=== PATIENT | male | born 1970 | race Caucasian/White ===

== ENCOUNTER 2016-02-18 12:28 | Emergency (ER) ==
[2016-02-18 12:40] VITALS: BP 138/85; TEMP 98.2; BMI 42.1
--- NOTE | 2016-02-18 12:41 | ED.PDOC ---
General ED Provider: Dr. KERRY BUTCHER-ER Chief Complaint: Respiratory Complaint Stated Complaint: my sinuses are draining and im coughing it up Time Seen by Physician: 12:35 Mode of Arrival: Walk-In Information Source: Patient Exam Limitations: No limitations Primary Care Provider: MARK ANTHONY MACIAS Nursing and Triage Documentation Reviewed and Agree: Yes Respiratory Complaint Exam - Respiratory Complaint/Exam Onset/Duration: 2 weeks Symptoms Are: Still present Timing: Intermittent Initial Severity: Mild Current Severity: Mild Location: Nose, Chest Character: Reports: Productive cough Aggravating: Reports: URI Associated Signs and Symptoms: Reports: URI, Nasal congestion, Sinus discomfort , Sore throat. Denies: Rapid breathing, Dyspnea, Fever, Chills, Chest pain, Pleuritic chest pain, Wheezing, Hemoptysis, Dizziness, Calf pain, Calf swelling , Edema, Hoarseness, Vomiting, Weight loss, Decreased oral intake, Increased thirst, Increased appetite, Increased urination Related History: Reports: Similar episode History of Healthcare-Acquired Pneumonia: No Related Surgical History: Reports: None Pseudomonas Risk Factors: Reports: None Tuberculosis Risk Factors: Reports: None Status Asthmaticus Risk Factors: Reports: None Home Oxygen Use: No Recent Stress Test: No Recent Echo/LV Function: No Current Antibiotic Use: No Current Asthma Medication Use: No Respiratory Distress: None Inadequate Respiratory Effort: No Dysphagia Present: No Stridor Present: No JVD Present: No Accessory Muscle Use: No Retractions: Not Present Diminished Breath Sounds: No Sinus Tenderness: None Grunting Respirations: No Kussmaul Respirations: No Differential Diagnoses: Bronchitis, URI Review of Systems - Review Of Systems Constitutional: Reports: No symptoms Eyes: Reports: No symptoms Ears, Nose, Mouth, Throat: Reports: Nose discharge Respiratory: Reports: Cough Cardiac: Reports: No symptoms GI: Reports: No symptoms : Reports: No symptoms Musculoskeletal: Reports: No symptoms Skin: Reports: No symptoms Neurological: Reports: No symptoms Endocrine: Reports: No symptoms Hematologic/Lymphatic: Reports: No symptoms All Other Systems: Reviewed and Negative Past Medical History - Past Medical History Endocrine: Reports: None Cardiovascular: Reports: None Respiratory: Reports: Asthma Hematological: Reports: None Gastrointestinal: Reports: None Genitourinary: Reports: None Neuro/Psych: Reports: None Musculoskeletal: Reports: None Cancer: Reports: None - Surgical History General Surgical History: Reports: Cholecystectomy, Unknown - Family History Family History: Reports: Unknown - Social History Smoking Status: Never smoker Hx Substance Use: No Alcohol Screening: None Lives: With family Physical Exam - Physical Exam Appearance: Well-appearing, No pain distress, Well-nourished Eyes: MARSHA, EOMI, Conjunctiva clear ENT: Rhinorrhea Neck: Supple Respiratory: Rhonchi Cardiovascular: RRR, Pulses normal, No rub, No murmur GI/: Soft, Nontender, No masses, Bowel sounds normal, No Organomegaly Musculoskeletal: Normal strength, ROM intact, No edema, No calf tenderness Skin: Warm, Dry, Normal color Neurological: Sensation intact, Motor intact, Reflexes intact, Cranial nerves intact, Alert, Oriented Psychiatric: Affect appropriate, Mood appropriate Critical Care Note - Critical Care Note Total Time (mins): 0 Course - Course Vital Signs: Temp Pulse Resp BP Pulse Ox 02/18/16 12:30 98.2 F 77 18 138/85 94 L Departure - Departure Time of Disposition: 12:41 Disposition: HOME SELF-CARE Discharge Problem: Bronchitis Sinusitis Qualifiers: Sinusitis location: unspecified location Chronicity: acute Recurrence: not specified as recurrent Qualifier Code: (J01.90) Acute sinusitis, unspecified Instructions: Acute Bronchitis (ED) Condition: Good Pt referred to PMD for follow-up: Yes Additional Instructions: biaxin 500mg bid x 14 days medrol dose pack--f/u with pcp Allergies/Adverse Reactions: Allergies aspirin Adverse Reaction (Verified 02/18/16 12:29) Home Medications: Ambulatory Orders Albuterol Sulfate 0.083% Neb [Albuterol 0.083% Neb] 1 vial NEB DIRECTED PRN 02/06/15 Cetirizine HCl [Zyrtec] 10 mg PO DAILY 02/06/15 Cyclobenzaprine HCl [Flexeril] 10 mg PO BID 02/06/15 Dicyclomine HCl [Bentyl] 10 mg PO QID 02/06/15 Lansoprazole [Prevacid] 15 mg PO DAILY 02/06/15 Losartan Potassium [Cozaar] 100 mg PO DAILY 02/06/15 Montelukast Sodium [Singulair] 10 mg PO ONCE 02/06/15 Pravastatin Sodium [Pravachol] 20 mg PO BEDTIME 02/06/15 Sertraline HCl [Zoloft] 50 mg PO DAILY 02/06/15 Multivitamin 1 cap PO DAILY 06/04/15 Disposition Discussed With: Patient
== END 2016-02-18 12:49 | disposition home or self-care (01) ==
LOC: ED 12:28
DX: J01.90 Acute sinusitis, unspecified (principal)
CPT/HCPCS: 99282

== ENCOUNTER 2016-03-15 10:00 | Outpatient (RCR) ==
--- NOTE | 2016-03-11 15:56 | RS.OPPTEV2 ---
Date of Note: 03/11/16 Visit #: 1 Date of Evaluation: 03/11/16 Date of Onset/Injury/Change in Status: 09/05/15 Surgery Performed?: No Treatment Diagnosis: back pain and LLE pain History of Condition/Mechanism of Injury:: Patient states that six months ago he had been having coughing and it was so bad he passed out. When he did he fell backward and hurt his back. The pain has been getting worse and he has been given pain meds and flexeril but has had some relief but it is temporary. Patient does report his left leg going numb when standing a great deal and he can trip at those times. He has not fallen other than when he passed out. Prior Level of Function.....Patient was independent with: ADL's, Self Care, Work /Vocation, Caregiving, Ambulation/Mobility, Community Integration/Access Functional Limitations: Sleep, Pulling, Lifting, Carrying, Sitting, Standing, Bending, Squatting, Ambulation, Community Access/Integration Treatment Side (optional): N/A *Precautions: 10# lifting restriction Medical History Medical History: Hypertension, Arthritis, Other Medical History Comments:: sleep apnea, anxiety, hgih cholesterol Surgical History: Cholecystectomy Surgical History Comments:: Rotator cuff repair and bicep tendon repair Pain Assessment - Pain Description Pain Description: Burning, Tightness, Sharp Pain Description: Punching type pain when at worst. Current Pain Intensity: 6-7/10 Worst Pain Intensity: 10/10 Functional Outcome Measure UE Functional Index: 44 - G Codes & Severity Modifier G Codes & Modifier: NA Source of G Code score: NA Observation - Observation Posture: Forward Head, Rounded Shoulders, Increased Thoracic Kyphosis, Increased Lumbar Lordosis General Muscle Strength: BLE MMT reveals 4 to 4+/5 strength with weakening over repetetive testing. - ROM Lumbar Flexion: Hand reach to patellae Sidebending to Left: Reach to Mid-thigh Sidebending to Right: Reach to Mid-thigh Lumbar Spine ROM Limitations: Pain Palpation Palpation Findings: Tenderness, Spasm (lower lumbar tenderness and tightness and lower thoracic area exhibits spasming.) Sensation - Sensation Left Lower Extremity: Impaired Sensation Description: Numbness (Intermittent left anterior thigh and foot.) Interventions - Exercise/Activities/Manual Therapy Exercises/Activities: NA Manual Therapy: NA - Charges Total Direct Minutes: 45 Total Treatment Time: 45 Procedures billed for this date of service:: PT Sil (Medium) Assessment Assessment: Thoracolumbar pain with LLE radicular pain. He has decreased lumbar ROM due to muscle tightness and pain and weakness of the core and BLEs. Patient Education: Education of diagnosis, Body/Joint mechanics, Activity Modification, Education of Plan of Care Rehab Potential: Good Short Term Goals Goal #1: Patient independent in basic HEP. Goal to be met by: 04/02/16 Goal #2: Lumbar ROM WFLs with min discomfort. Goal to be met by: 04/02/16 Goal #3: Eliminate radicular symptoms below the left knee. Goal to be met by: 04/02/16 Goal #4: Eliminate back spasming in the thoracic region. 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 Goal to be met by: 04/30/16 Goal #4: Independent with DC HEP Goal to be met by: 04/23/16 Plan - Treatment to be Provided Procedures: Therapeutic Exercises, Therapeutic Activity, Manual Therapy, Massage , Patient Education Modalities: Electrical Stimulation, Ultrasound/Phonophoresis, Cryotherapy, Hot Packs, Mechanical Traction - Treatment Plan Frequency: 3 X week Duration: 6 weeks ORDER # VISITS AND/OR THROUGH DATE: 04/30/2016 - Treatment Code (1) Lumbar radicular pain Comments: M54.16
--- NOTE | 2016-03-15 11:19 | RS.OPPTDN ---
Subjective Date of Note: 03/15/16 Visit #: 2 Date of Evaluation: 03/11/16 Treatment Diagnosis: back pain and LLE pain Current Subjective/complaints:: Patient c/o constant ache to the lower L lumbar paraspinals with tingling/numbness to the LE. Rates pain 7/10 today. States he has had back pain for many years same location and has had estim that relieved this pain. He mentions he does not want surgery, but will be seeing his neurosurgeon soon. *Precautions: 10# lifting restriction Pain Assessment - Pain Description Pain Location: L and R lumbar paraspinals and numbness/tingling bilateral LE, but more to the L. Pain Description: Burning, Tightness, Sharp Pain Description: Punching type pain when at worst. Current Pain Intensity: 7/10 - Treatment Modality: Electrical Stim Unattended Parameters/Method Applied: hivolt 4 large pads @ 165 pk volts uncrossed at the lumbar paraspinals Patient Position: Right Sidelying - Heat/Cryotherapy Treatment: Hot Pack Interventions - Exercise/Activities/Manual Therapy Exercises/Activities: Began passive stretching of SKTC, HS, Piriformis and lower trunk rotation (short range). Bilaterally x 3 reps. Provided Biofreeze. Began patient education on diagnosis and explanation of therex performed and why. Total minutes of Exercise: 12 Manual Therapy: NA - Charges Total Direct Minutes: 12 Total Treatment Time: 32 Procedures billed for this date of service:: hp, estim (un), ex Assessment: Patient presents with 7/10 pain level to the lumbar region with radicular symptoms to bilateral LE's. This more evident to the L LE. He has disturbed sleep, but also has sleep apnea. He takes pain meds and muscle relaxer to relieve his c/o's. He has a guarded posture and ambulation and remains so during stretching as he is not able to allow SKTC past 85 degrees hip flexion on the L. Grimacing noted with all stretching both sides. He should be able to see benefit from treatment with further modalities and stretching. Patient Education: Education of diagnosis, Body/Joint mechanics, Home Exercise Program, Home Safety, Activity Modification, Education of Plan of Care Short Term Goals Goal #1: Patient independent in basic HEP. Goal to be met by: 04/02/16 Goal #2: Lumbar ROM WFLs with min discomfort. Goal to be met by: 04/02/16 Goal #3: Eliminate radicular symptoms below the left knee. Goal to be met by: 04/02/16 Goal #4: Eliminate back spasming in the thoracic region. Goal to be met by: 04/02/16 Assisted Goals Goal #1: BLE strength 5/5 Goal to be met by: 04/23/16 Goal #2: Pain at worst /10 Goal to be met by: 04/23/16 Goal #3: Performs his job with minimal discomfort. Goal to be met by: 04/30/16 Goal #4: Independent with DC HEP Goal to be met by: 04/23/16 Plan PLAN OF CARE EXPIRES ON:: 04/30/16 ORDER # VISITS AND/OR THROUGH DATE: 04/30/2016 PLAN: Continue Plan of Care
== END 2016-03-16 ==
PROVIDERS: ATTEND Nurse Practitioner
DX: M54.89 Other dorsalgia (principal)

== ENCOUNTER 2016-03-18 09:52 | Outpatient (CLI) ==
[2016-03-18 11:43] VITALS: BMI 41.9
== END 2016-03-18 09:53 | disposition home or self-care (01) ==
LOC: DIETCN 09:52
PROVIDERS: ATTEND Nurse Practitioner
DX: Z68.41 Body mass index [BMI] 40.0-44.9, adult (principal)
CPT/HCPCS: 97802

== ENCOUNTER 2016-03-28 10:03 | Emergency (ER) ==
[2016-03-28 10:09] VITALS: BP 154/99; TEMP 98; BMI 42.0
--- NOTE | 2016-03-28 10:14 | ED.PDOC ---
General ED Provider: Dr. ZEUS NEGRON JR Chief Complaint: Cough Stated Complaint: INCREASINGLY WORSENING PRODUCTIVE COUGH, NASAL SYMPTOMS. TREATED ABOUT 3 WEEKS AGO FOR SIMILAR ISSUE...WAS BETTER AND NOW BACK. HX A YEAR OR SO AGO OF PNEUMONIA. SAYS CHEST FEELS TIGHT ON RIGHT LATERAL SIDE INCREASE COUGH[End]98 89 20 97% 154/99 04/23. Time Seen by Physician: 10:14 Mode of Arrival: Walk-In Information Source: Patient Exam Limitations: No limitations Primary Care Provider: MARK ANTHONY MACIAS Nursing and Triage Documentation Reviewed and Agree: No Review of Systems - Review Of Systems Constitutional: Reports: Malaise, Weakness Eyes: Reports: No symptoms Ears, Nose, Mouth, Throat: Reports: Throat pain Respiratory: Reports: Cough, Short of air Cardiac: Reports: Chest pain (RIGHT SIDED) GI: Reports: No symptoms : Reports: No symptoms Musculoskeletal: Reports: No symptoms Skin: Reports: No symptoms Neurological: Reports: No symptoms Endocrine: Reports: No symptoms Hematologic/Lymphatic: Reports: No symptoms All Other Systems: Other Past Medical History - Past Medical History Endocrine: Reports: Dyslipidemia Cardiovascular: Reports: Hypertension Respiratory: Reports: Asthma, Pneumonia, Other (Upper Respiratory Problem) Hematological: Reports: None Gastrointestinal: Reports: GERD, Other (hiatal hernia ) Genitourinary: Reports: None Neuro/Psych: Reports: None Musculoskeletal: Reports: None Cancer: Reports: None - Surgical History General Surgical History: Reports: Cholecystectomy, Orthopedic (RIGHT HAND SURGERY, ROTATOR CUFF.), Hernia Repair (LEFT HERNIA), Other (SINUS SURGERY X2), Unknown - Family History Family History: Reports: Unknown - Social History Smoking Status: Never smoker Hx Substance Use: No Alcohol Screening: None - Immunizations Tetanus Shot up to Date: Yes Physical Exam - Physical Exam Appearance: Well-appearing, Obese Ill-appearing: Mild Pain Distress: Mild Eyes: MARSHA, EOMI, Conjunctiva clear ENT: Nose normal, Oropharynx normal, Erythema Neck: Supple Respiratory: Airway patent, Breath sounds equal, Breath sounds diminished Cardiovascular: RRR, Pulses normal, No rub, No murmur GI/: Soft, Nontender, No masses, Bowel sounds normal, No Organomegaly Musculoskeletal: Normal strength, ROM intact, No edema, No calf tenderness Skin: Warm, Dry, Normal color Neurological: Sensation intact, Motor intact, Reflexes intact, Cranial nerves intact, Alert, Oriented Psychiatric: Affect appropriate, Mood appropriate Interpretation - Radiology Interpretation Radiology Interpretation By: ED Physician Radiology Results: Negative (BRONCHIAL CUFFING PRESENT) Exam Interpreted: CXR Radiology Interpretation By: Radiologist Radiology Results: Negative Exam Interpreted: CXR Critical Care Note - Critical Care Note Total Time (mins): 0 Course - Course Orders, Labs, Meds: Lab Review 03/28/16 10:15 Influenza A (Rapid) Negative Influenza B (Rapid) Negative Orders Category Date Time Status NEBULIZER TREATMENT Stat CARDIO 03/28/16 10:33 Completed PEAK FLOW Routine CARDIO 03/28/16 10:33 Completed MOLECULAR GROUP A STREP Stat LAB 03/28/16 10:15 Results RAPID FLU A/B Stat LAB 03/28/16 10:15 Completed SPUTUM CULTURE Stat LAB 03/28/16 11:13 Received STREP SCREEN Stat LAB 03/28/16 10:15 Results Ipratropium/Albuterol Neb [Duoneb] MEDS 03/28/16 10:33 Discontinued 1 vial NEB ONCE STA Methylprednisolone Sod Succ/Pf [Solu-Medrol 125 mg] MEDS 03/28/16 10:33 Discontinued 125 mg IM ONCE STA CHEST, 2 VIEWS PA & LAT Stat RADS 03/28/16 10:12 Completed Medications Discontinued Medications Generic Name Dose Route Start Last Admin Trade Name Freq PRN Reason Stop Dose Admin Albuterol/Ipratropium 1 vial 03/28/16 10:33 03/28/16 10:49 Duoneb NEB 03/28/16 10:34 1 vial ONCE STA Administration Methylprednisolone Sodium Succinate 125 mg 03/28/16 10:33 03/28/16 10:57 Solu-Medrol 125 Mg IM 03/28/16 10:34 125 mg ONCE STA Administration Vital Signs: Temp Pulse Resp BP Pulse Ox 03/28/16 10:04 98 F 89 20 154/99 H 97 Departure - Departure Time of Disposition: 10:57 Disposition: HOME SELF-CARE Discharge Problem: Cough, Bronchitis Instructions: Acute Bronchitis (ED) Condition: Good Pt referred to PMD for follow-up: Yes Additional Instructions: CODEINE FOR COUGH MAY TRY DEXTROMETHORPHAN INSTEAD(DM COUGH MEDICATION) SOLUMEDROL GIVEN IN ER RECHECK PMD THIS WEEK Prescriptions: Guaifenesin/Codeine Phosphate [Robitussin AC Syrup] 10 ml PO Q6H PRN #240 ml PRN Reason: Cough Allergies/Adverse Reactions: Allergies aspirin Adverse Reaction (Verified 02/12/17 10:11) Home Medications: Ambulatory Orders Albuterol Sulfate 0.083% Neb [Albuterol 0.083% Neb] 1 vial NEB DIRECTED PRN 02/06/15 Cetirizine HCl [Zyrtec] 10 mg PO DAILY 02/06/15 Cyclobenzaprine HCl [Flexeril] 10 mg PO BID 02/06/15 Dicyclomine HCl [Bentyl] 10 mg PO QID 02/06/15 Lansoprazole [Prevacid] 15 mg PO DAILY 02/06/15 Losartan Potassium [Cozaar] 100 mg PO DAILY 02/06/15 Montelukast Sodium [Singulair] 10 mg PO ONCE 02/06/15 Pravastatin Sodium [Pravachol] 20 mg PO BEDTIME 02/06/15 Sertraline HCl [Zoloft] 50 mg PO DAILY 02/06/15 Multivitamin 1 cap PO DAILY 06/04/15 Guaifenesin/Codeine Phosphate [Robitussin AC Syrup] 10 ml PO Q6H PRN #240 ml 01/30
[2016-03-28] MEDS ORDERED: DUONEB NEB STA (10:33)
[2016-03-28] MEDS ORDERED: SOLU-MEDROL 125 MG IM STA (10:33)
--- NOTE | 2016-03-28 10:36 | DI ---
Examination: Two radiographic images of the chest. Comparison: 08/18/2015. Reason for study: Cough. FINDINGS: No pneumothorax, pleural effusion, or focal consolidation. The cardiac silhouette is not enlarged. Degenerative disease is noted in the thoracic spine with the exaggeration of the thoraci c kyphosis. Impression: No acute cardiopulmonary findings.
[2016-03-28 10:44] LABS: FLU INTERNAL QC INTERNAL QC VALID; RAPID FLU A NEGATIVE (NEGATIVE); RAPID FLU B NEGATIVE (NEGATIVE)
== END 2016-03-28 11:30 | disposition home or self-care (01) ==
LOC: ED 10:03
DX: J20.9 Acute bronchitis, unspecified (principal); R05 Cough
CPT/HCPCS: 87070; 87651; 87804; 87880; 94250; 94640; 96372; 99282; 99283

== ENCOUNTER 2016-04-07 11:00 | Outpatient (RCR) ==
--- NOTE | 2016-03-19 11:12 | RS.OPPTDN ---
Subjective Date of Note: 03/19/16 Visit #: 3 Date of Evaluation: 03/11/16 Treatment Diagnosis: back pain and LLE pain Current Subjective/complaints:: Reports most of hispain is in the L low back and L LE today,but some R sided pain. *Precautions: 10# lifting restriction Pain Assessment - Pain Description Pain Location: L and R lumbar paraspinals and numbness/tingling bilateral LE, but more to the L. Pain Description: Radiating, Aching Current Pain Intensity: 7/10 - Treatment Modality: Electrical Stim Unattended Parameters/Method Applied: 20 mins. high volt to lumbar,channel 1 @165pv, channel 2 @ 135 pv. Patient Position: Right Sidelying - Heat/Cryotherapy Treatment: Hot Pack (concurrent with e-stim) Interventions - Exercise/Activities/Manual Therapy Exercises/Activities: 20 mins. SKTC,DKTC,90/90 hamstring stretches,piriformis stretches,SI muscle energy of resisted knee extension in hooklying position. Total minutes of Exercise: 20 Manual Therapy: NA Total minutes of Manual Therapy: 0 HOME EXERCISE PROGRAM: SKTC,DKTC,piriformis stretches,hamstring stretches as tolerated in PAIN FREE ROM. - Charges Total Direct Minutes: 20 Total Treatment Time: hp,e-stim,ex Procedures billed for this date of service:: 40 Assessment: Patient is guarded with all motion due to pain,He does respond well to stretches as the reps. progress.TheL lumbarand L piriformis are tighter than the R side.He is attentive and motivated to improve. Patient Education: Body/Joint mechanics, Home Exercise Program, Home Safety, Activity Modification, Education of Plan of Care Patient demonstrates compliance with HEP?: Yes Short Term Goals Goal #1: Patient independent in basic HEP. Goal to be met by: 04/02/16 Progress towards Goal:: Progressing Goal #2: Lumbar ROM WFLs with min discomfort. Goal to be met by: 04/02/16 Goal #3: Eliminate radicular symptoms below the left knee. Goal to be met by: 04/02/16 Goal #4: Eliminate back spasming in the thoracic region. Goal to be met by: 04/02/16 Longterm Goals Goal #1: BLE strength 5/5 Goal to be met by: 04/23/16 Goal #2: Pain at worst 4/10 Goal to be met by: 04/23/16 Goal #3: Performs his job with minimal discomfort. Goal to be met by: 04/30/16 Goal #4: Independent with DC HEP Goal to be met by: 04/23/16 Plan PLAN OF CARE EXPIRES ON:: 04/30/16 ORDER # VISITS AND/OR THROUGH DATE: 04/30/2016 PLAN: Continue Plan of Care
--- NOTE | 2016-03-22 10:17 | RS.CXNS ---
Date of scheduled appointment: 03/22/16 Type: Cancel Reason for Cancel/NS: Called in to work.
--- NOTE | 2016-03-26 12:50 | RS.OPPTDN ---
Subjective Date of Note: 03/26/16 Visit #: 4 Date of Evaluation: 03/11/16 Treatment Diagnosis: back pain and LLE pain Current Subjective/complaints:: Reports the back is about the same today,also tripped and feel over a pallet at work,adding to his soreness. *Precautions: 10# lifting restriction Pain Assessment - Pain Description Pain Location: L and R lumbar paraspinals and numbness/tingling bilateral LE, but more to the L. Pain Description: Radiating, Aching Pain Description: radiating into the L LE today. Current Pain Intensity: 08/23 - Treatment Modality: Electrical Stim Unattended Parameters/Method Applied: 20 ins. hiugh volt to lumbar,channel 1 @ 160pv, channel 2 @ 135 pv. Patient Position: Right Sidelying - Heat/Cryotherapy Treatment: Hot Pack (concurrent with e-stim) Interventions - Exercise/Activities/Manual Therapy Exercises/Activities: 20 mins. SKTC,DKTC,90/90 hamstring stretches,piriformis stretches,lower trunk rotation in hooklying. Total minutes of Exercise: 20 Manual Therapy: NA Total minutes of Manual Therapy: 0 HOME EXERCISE PROGRAM: SKTC,DKTC,piriformis stretches,hamstring stretches as tolerated in PAIN FREE ROM. - Charges Total Direct Minutes: 20 Total Treatment Time: 40 Procedures billed for this date of service:: hp,e-stim,ex 1 Assessment: Patient more guarded today ,especially with L piriformis stretch and trunk rotation to the R ,with report of increased pain in the L lumbar.He is attentive and motivated to improve .He does ahve moderate hamstring tightness ,but responds to stretches well. Patient Education: Body/Joint mechanics, Home Exercise Program, Home Safety, Activity Modification, Education of Plan of Care Patient demonstrates compliance with HEP?: Yes Short Term Goals Goal #1: Patient independent in basic HEP. Goal to be met by: 04/02/16 Progress towards Goal:: Progressing Goal #2: Lumbar ROM WFLs with min discomfort. Goal to be met by: 04/02/16 Progress towards Goal:: Progressing Goal #3: Eliminate radicular symptoms below the left knee. Goal to be met by: 04/02/16 (entire L LE today) Progress towards Goal:: No Change Goal #4: Eliminate back spasming in the thoracic region. Goal to be met by: 04/02/16 Progress towards Goal:: Progressing Halfway Goals Goal #1: BLE strength 06/18 Goal to be met by: 04/23/16 Goal #2: Pain at worst 05/24 Goal to be met by: 04/23/16 Progress towards goal: No Change Goal #3: Performs his job with minimal discomfort. Goal to be met by: 04/30/16 Goal #4: Independent with DC HEP Goal to be met by: 04/23/16 Plan PLAN OF CARE EXPIRES ON:: 04/30/16 ORDER # VISITS AND/OR THROUGH DATE: 04/30/2016 PLAN: Progress Exercises
--- NOTE | 2016-03-29 09:07 | RS.CXNS ---
Date of scheduled appointment: 03/29/16 Type: Cancel (called ,is sick)
--- NOTE | 2016-04-02 11:02 | RS.OPPTDN ---
Subjective Date of Note: 04/02/16 Visit #: 5 Date of Evaluation: 03/11/16 Treatment Diagnosis: back pain and LLE pain Current Subjective/complaints:: Reports the back feels about the same,is doing his stretches.We discusd progresing to leg strengthening today,is agreeable . *Precautions: 10# lifting restriction Pain Assessment - Pain Description Pain Location: L and R lumbar paraspinals and numbness/tingling bilateral LE, but more to the L. Pain Description: Radiating, Aching Pain Description: radiating into the L LE today. Current Pain Intensity: 08/23 - Treatment Modality: Electrical Stim Unattended Parameters/Method Applied: 20 mins. high volt,channel 1 @ 200pv,channel 2@ 140 pv. Patient Position: Right Sidelying - Heat/Cryotherapy Treatment: Hot Pack (concurrent with e-stim) Interventions - Exercise/Activities/Manual Therapy Exercises/Activities: 20 mins. ,2/15 each of seated leg press @ 30# ,1 set @ 45 #,followed by calf-raises,3/15 @ 30 #. Total minutes of Exercise: 20 Manual Therapy: NA Total minutes of Manual Therapy: 0 HOME EXERCISE PROGRAM: SKTC,DKTC,piriformis stretches,hamstring stretches as tolerated in PAIN FREE ROM. - Charges Total Direct Minutes: 20 Total Treatment Time: 40 Procedures billed for this date of service:: hp,e-stim,ex1 Assessment: Patient reports feeling increased pressure in his back with resistive exercises ,but no pain .He is compliant to HEP.He is aware of 10# lifting restricition at work and is cautious.His L sciatica is the entire length of the L LE today,into the foot. Patient Education: Education of diagnosis, Body/Joint mechanics, Home Exercise Program, Home Safety, Activity Modification, Education of Plan of Care Patient demonstrates compliance with HEP?: Yes Short Term Goals Goal #1: Patient independent in basic HEP. Goal to be met by: 04/02/16 Progress towards Goal:: Partially Met Goal #2: Lumbar ROM WFLs with min discomfort. Goal to be met by: 04/02/16 Progress towards Goal:: Progressing Goal #3: Eliminate radicular symptoms below the left knee. Goal to be met by: 04/02/16 (entire L LE today) Progress towards Goal:: No Change Goal #4: Eliminate back spasming in the thoracic region. 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 Goal to be met by: 04/30/16 Goal #4: Independent with DC HEP Goal to be met by: 04/23/16 Progress towards goal: Progressing Plan PLAN OF CARE EXPIRES ON:: 04/30/16 ORDER # VISITS AND/OR THROUGH DATE: 04/30/2016 PLAN: Continue Plan of Care
--- NOTE | 2016-04-07 12:00 | RS.OPPTDN ---
Subjective Date of Note: 04/07/16 Visit #: 6 Date of Evaluation: 03/11/16 Treatment Diagnosis: back pain and LLE pain Current Subjective/complaints:: Reports the back is about the same today,still occasionally has pain radiating into the L LE. *Precautions: 10# lifting restriction Pain Assessment - Pain Description Pain Location: L and R lumbar paraspinals and numbness/tingling occasionally into the L LE. Pain Description: Radiating, Aching Pain Description: radiating into the L LE today. Current Pain Intensity: 08/23 - Treatment Modality: Electrical Stim Unattended Parameters/Method Applied: 20 mins. high volt to lumbar/L gluteal area,channel 1 @230pv,channel2 @ 165pv. Patient Position: Right Sidelying - Heat/Cryotherapy Treatment: Hot Pack (concurrent with e-stim) Interventions - Exercise/Activities/Manual Therapy Exercises/Activities: Attempted black theraband exercises ,but patient reports painful R shoulder.Instructed in standing alternate UE/LE extension. Total minutes of Exercise: 5 Manual Therapy: NA Total minutes of Manual Therapy: 0 HOME EXERCISE PROGRAM: SKTC,DKTC,piriformis stretches,hamstring stretches as tolerated in PAIN FREE ROM. - Charges Total Direct Minutes: 5 Total Treatment Time: 25 Procedures billed for this date of service:: hp,e-stim Patient Education: Education of Plan of Care Short Term Goals Goal #1: Patient independent in basic HEP. Goal to be met by: 04/02/16 Progress towards Goal:: Partially Met Goal #2: Lumbar ROM WFLs with min discomfort. Goal to be met by: 04/02/16 (7 pain again today) Progress towards Goal:: No Change Goal #3: Eliminate radicular symptoms below the left knee. Goal to be met by: 04/02/16 Progress towards Goal:: Progressing Goal #4: Eliminate back spasming in the thoracic region. 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 Goal to be met by: 04/30/16 (pain varies) Goal #4: Independent with DC HEP Goal to be met by: 04/23/16 Progress towards goal: Progressing Plan PLAN OF CARE EXPIRES ON:: 04/30/16 ORDER # VISITS AND/OR THROUGH DATE: 04/30/2016 PLAN: Continue Plan of Care
== END 2016-04-13 ==
PROVIDERS: ATTEND Nurse Practitioner
DX: M54.89 Other dorsalgia (principal)

== ENCOUNTER 2016-04-14 11:16 | Outpatient (RCR) ==
--- NOTE | 2016-04-14 12:02 | RS.OPPTDN ---
Subjective Date of Note: 04/14/16 Visit #: 7 Date of Evaluation: 03/11/16 Treatment Diagnosis: back pain and LLE pain Current Subjective/complaints:: Reports walking more at work the last few days, has elevated pain today. *Precautions: 10# lifting restriction Pain Assessment - Pain Description Pain Location: L and R lumbar paraspinals and numbness/tingling occasionally into the L LE. Pain Description: radiating into the L LE today. Current Pain Intensity: 10/24 - Treatment Modality: Electrical Stim Unattended Parameters/Method Applied: 20 mins. high volt,channel 1 @ 200pv,channel 2 @ 125pv to lumbar and L hip. Patient Position: Right Sidelying - Heat/Cryotherapy Treatment: Hot Pack (concurrent with e-stim ) Interventions - Exercise/Activities/Manual Therapy Exercises/Activities: 20 mins. SKTC, hamstring stretches,piriformis stretches, LTR. Total minutes of Exercise: 20 Manual Therapy: NA Total minutes of Manual Therapy: 0 HOME EXERCISE PROGRAM: SKTC,DKTC,piriformis stretches,hamstring stretches as tolerated in PAIN FREE ROM. - Charges Total Direct Minutes: 20 Total Treatment Time: 40 Procedures billed for this date of service:: hp,e-stim,ex 1 Assessment: Patient is more guarded today with stretches ,especially with L piriformis stretches,as his pain is elevated today.He reports temporary relief only,and the pain continues to be dependent upon the amount of standing time, such as at work. Patient Education: Body/Joint mechanics, Home Exercise Program, Activity Modification Patient demonstrates compliance with HEP?: Yes Short Term Goals Goal #1: Patient independent in basic HEP. Goal to be met by: 04/02/16 Progress towards Goal:: Met Goal #2: Lumbar ROM WFLs with min discomfort. Goal to be met by: 04/02/16 (10/24 today) Progress towards Goal:: Regressing Goal #3: Eliminate radicular symptoms below the left knee. Goal to be met by: 04/02/16 Progress towards Goal:: No Change Goal #4: Eliminate back spasming in the thoracic region. 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 Goal to be met by: 04/30/16 (pain varies) Progress towards goal: No Change Goal #4: Independent with DC HEP Goal to be met by: 04/23/16 Progress towards goal: Progressing Plan PLAN OF CARE EXPIRES ON:: 04/30/16 ORDER # VISITS AND/OR THROUGH DATE: 04/30/2016 PLAN: Plan for Discharge
--- NOTE | 2016-04-21 11:47 | RS.CXNS ---
Date of scheduled appointment: 04/21/16 Type: No Show Reason for Cancel/NS: Unknown
--- NOTE | 2016-05-04 15:57 | RS.QUICKDC ---
Discharge from PT Date of Discharge: 05/04/16 Number of Visits: 7 Reason for Discharge: No appts. kept after 04-14-16.
== END 2016-05-14 ==
PROVIDERS: ATTEND Nurse Practitioner
DX: M54.89 Other dorsalgia (principal)

== ENCOUNTER 2016-09-23 07:08 | Emergency (ER) ==
[2016-09-23 07:14] VITALS: BP 147/92; TEMP 98.1; BMI 41.1
[2016-09-23] MEDS ORDERED: DECADRON 4 MG/ML SDV IM STA (07:23)
[2016-09-23] MEDS ORDERED: DUONEB NEB STA (07:24)
[2016-09-23 07:58] LABS: MONO INTERNAL QC INTERNAL QC VALID
--- NOTE | 2016-09-23 08:20 | ED.PDOC ---
General ED Provider: Dr. IHRAL TALAVERA Chief Complaint: Sore Throat Stated Complaint: sore throat Time Seen by Physician: 07:10 (cough , congestion, ) Mode of Arrival: Walk-In Information Source: Patient Exam Limitations: No limitations Primary Care Provider: MARK ANTHONY MACIAS Nursing and Triage Documentation Reviewed and Agree: Yes EENT Complaint Exam - Throat Complaint/Exam Symptoms Are: Resolved Initial Severity: Moderate Current Severity: Mild Alleviating: Reports: None Associated Signs and Symptoms: Reports: Cough. Denies: Fever, Dysphagia, Drooling, Foreign body sensation, Chills, Wheezing, Hoarseness, Sinus discomfort , Nasal congestion, Difficulty breathing, Lethargy, Irritability, Decreased activity, Vomiting, Diarrhea, Decreased hearing, Ear drainage Related History: Reports: Similar Episode Uvula Midline: Yes Cordelia-tonsillar Fluctuence: No Scarlatinaform Rash Present: No Stridor Present: No Sinus Tenderness Present: No Tonsillar Hypertrophy Present: No Tonsillar Exudate Present: No Cordelia-tonsillar Swelling Present: No Adenopathy Present: No Splenomegaly Present: No Review of Systems - Review Of Systems Constitutional: Reports: No symptoms Eyes: Reports: No symptoms Ears, Nose, Mouth, Throat: Reports: Throat pain Respiratory: Reports: Cough Cardiac: Reports: No symptoms GI: Reports: No symptoms : Reports: No symptoms Musculoskeletal: Reports: No symptoms Skin: Reports: No symptoms Neurological: Reports: No symptoms Endocrine: Reports: No symptoms Hematologic/Lymphatic: Reports: No symptoms All Other Systems: Reviewed and Negative Past Medical History - Past Medical History Endocrine: Reports: Dyslipidemia Cardiovascular: Reports: Hypertension Respiratory: Reports: Asthma, Pneumonia, Other Hematological: Reports: None Gastrointestinal: Reports: GERD, Other Genitourinary: Reports: None Neuro/Psych: Reports: None Musculoskeletal: Reports: None Cancer: Reports: None - Surgical History General Surgical History: Reports: Cholecystectomy, Orthopedic, Hernia Repair, Other, Unknown - Family History Family History: Reports: Unknown - Social History Smoking Status: Never smoker Hx Substance Use: No Alcohol Screening: None Physical Exam - Physical Exam Appearance: Well-appearing, No pain distress, Well-nourished Eyes: MARSHA, EOMI, Conjunctiva clear ENT: Erythema Respiratory: Airway patent, Breath sounds clear, Breath sounds equal, Respirations nonlabored Cardiovascular: RRR, Pulses normal, No rub, No murmur GI/: Soft, Nontender, No masses, Bowel sounds normal, No Organomegaly Musculoskeletal: Normal strength, ROM intact, No edema, No calf tenderness Skin: Warm, Dry, Normal color Neurological: Sensation intact, Motor intact, Reflexes intact, Cranial nerves intact, Alert, Oriented Psychiatric: Affect appropriate, Mood appropriate Interpretation - Radiology Interpretation Radiology Interpretation By: ED Physician Radiology Results: Negative Exam Interpreted: CXR Critical Care Note - Critical Care Note Total Time (mins): 0 Course - Course Orders, Labs, Meds: Lab Review 09/23/16 07:50 Infectious [place] Assay Negative Orders Category Date Time Status NEBULIZER TREATMENT Stat CARDIO 09/23/16 07:24 Ordered MOLECULAR GROUP A STREP Stat LAB 09/23/16 07:30 Results MONONUCLOSIS SCREEN Stat LAB 09/23/16 07:50 Completed RAPID STREP SCREEN [STREP SCREEN] Stat LAB 09/23/16 07:23 Uncollected Dexamethasone 4 mg/ml Inj [Decadron 4 mg/ml Sdv] MEDS 09/23/16 07:23 Stat 8 mg IM ONCE STA Ipratropium/Albuterol Neb [Duoneb] MEDS 09/23/16 07:24 Stat 1 vial NEB ONCE STA CHEST, 2 VIEWS PA & LAT Stat RADS 09/23/16 07:23 Ordered Medications Discontinued Medications Generic Name Dose Route Start Last Admin Trade Name Freq PRN Reason Stop Dose Admin Albuterol/Ipratropium 1 vial 09/23/16 07:24 09/23/16 07:30 Duoneb NEB 09/23/16 07:25 1 vial ONCE STA Administration Dexamethasone Sodium Phosphate 8 mg 09/23/16 07:23 09/23/16 07:39 Decadron 4 Mg/Ml Sdv IM 09/23/16 07:24 8 mg ONCE STA Administration Vital Signs: Temp Pulse Resp BP Pulse Ox 09/23/16 07:09 98.1 F 70 16 147/92 H 97 Departure - Departure Time of Disposition: 08:19 Disposition: HOME SELF-CARE Discharge Problem: Sore throat symptom, Bronchitis Instructions: Cold Symptoms (ED), Acute Cough (ED), Wheezing (ED), How Your Lungs Work (ED), Safe Use of Cough and Cold Medicines (ED) Condition: Good Pt referred to PMD for follow-up: Yes Additional Instructions: Please call your Family Physician as soon as possible to schedule a follow-up appointment.start steroids in am Allergies/Adverse Reactions: Allergies aspirin Adverse Reaction (Verified 09/23/16 07:15) Home Medications: Ambulatory Orders Albuterol Sulfate 0.083% Neb [Albuterol 0.083% Neb] 1 vial NEB DIRECTED PRN 02/06/15 Cetirizine HCl [Zyrtec] 10 mg PO DAILY 02/06/15 Cyclobenzaprine HCl [Flexeril] 10 mg PO BID 02/06/15 Dicyclomine HCl [Bentyl] 10 mg PO QID 02/06/15 Lansoprazole [Prevacid] 15 mg PO DAILY 02/06/15 Losartan Potassium [Cozaar] 100 mg PO DAILY 02/06/15 Montelukast Sodium [Singulair] 10 mg PO ONCE 02/06/15 Pravastatin Sodium [Pravachol] 20 mg PO BEDTIME 02/06/15 Sertraline HCl [Zoloft] 50 mg PO DAILY 02/06/15 Multivitamin 1 cap PO DAILY 06/04/15
--- NOTE | 2016-09-23 08:25 | DI ---
EXAM: PA and lateral views of the chest HISTORY: Cough COMPARISON: Chest Xray from 03/28/2016 FINDINGS: Lungs are clear with no lobar consolidation, failure, large effusion or significant atele ctasis. The cardiomediastinal silhouette is unremarkable. No acute osseous or soft tissue abnormal ities. IMPRESSION: No active disease.
== END 2016-09-23 08:34 | disposition home or self-care (01) ==
LOC: ED 07:08
DX: J02.9 Acute pharyngitis, unspecified (principal); J40 Bronchitis, not specified as acute or chronic
CPT/HCPCS: 36415; 86308; 87651; 87880; 94640; 96372; 99283

== ENCOUNTER 2017-02-10 08:33 | Outpatient (CLI) ==
[2017-02-11 15:16] LABS: TESTOSTERONE 367 ng/dL (264-916)
== END 2017-02-10 08:34 | disposition home or self-care (01) ==
LOC: LAB 08:33
PROVIDERS: ATTEND Physician Assistant Medical
DX: N52.9 Male erectile dysfunction, unspecified (principal)
CPT/HCPCS: 36415; 84403

== ENCOUNTER 2017-04-13 00:05 | Emergency (ER) ==
[2017-04-13] MEDS ORDERED: TYLENOL PO STA (00:21)
[2017-04-13] MEDS ORDERED: DECADRON 4 MG/ML SDV IM STA (00:23)
[2017-04-13 00:25] VITALS: BP 140/88; TEMP 101.1; BMI 42.8
[2017-04-13] MEDS ORDERED: TYLENOL LIQUID 650 MG/20.3 ML ONE (00:25)
--- NOTE | 2017-04-13 00:26 | ED.PDOC ---
General ED Provider: Dr. PHONG VELAZQUEZ Chief Complaint: Fever Stated Complaint: Been having fever, coughing, congestion, body aches. Son had Flu B. Time Seen by Physician: 00:24 Mode of Arrival: Walk-In Information Source: Patient Primary Care Provider: MARK ANTHONY MACIAS Nursing and Triage Documentation Reviewed and Agree: Yes Reviewed sepsis parameters & appropriate labs ordered?: No System Inflammatory Response Syndrome: Not Applicable Sepsis Protocol: For patient's 13 years and over: Temp is 96.8 and below OR 101 and greater Pulse >90 BPM Resp >20/minute Acutely Altered Mental Status Are patient's symptoms suggestive of a new infection, such as: -Pneumonia -Skin, Soft Tissue -Endocarditis -UTI -Bone, Joint Infection -Implantable Device -Acute Abdominal Infection -Wound Infection -Meningitis -Blood Stream Catheter Infection -Unknown Miscellaneous Complaint Exam - Febrile Illness/Adult Complaint/Exam Symptoms Are: Still present Timing: Constant Episodes Lasting: Days Initial Severity: Moderate Current Severity: Moderate Aggravating: Reports: None Associated Signs and Symptoms: Reports: Cough, Sore throat, Myalgia. Denies: Headache, Fluid intake, Short of air, Nausea, Vomiting, Chills, Diaphoresis, Dysuria, Arthralgia, Stiff neck, Rash, Altered mental status Pseudomonas Risk Factors: Reports: None Serious Bacterial Infection Risk Factors: Reports: None Current Antibiotic Use: No Related Surgical History: None Differential Diagnoses: Viremia, Other (urti) Review of Systems - Review Of Systems Constitutional: Reports: Fever, Malaise, Weakness Eyes: Reports: No symptoms Ears, Nose, Mouth, Throat: Reports: Throat pain Respiratory: Reports: Cough Cardiac: Reports: No symptoms GI: Reports: No symptoms : Reports: No symptoms Musculoskeletal: Reports: No symptoms Skin: Reports: No symptoms Neurological: Reports: No symptoms Endocrine: Reports: No symptoms Hematologic/Lymphatic: Reports: No symptoms All Other Systems: Reviewed and Negative Past Medical History - Past Medical History Previously Healthy: Yes Endocrine: Reports: Dyslipidemia Cardiovascular: Reports: Hypertension Respiratory: Reports: Asthma, Pneumonia, Other Hematological: Reports: None Gastrointestinal: Reports: GERD, Other Genitourinary: Reports: None Neuro/Psych: Reports: None Musculoskeletal: Reports: None Cancer: Reports: None - Surgical History General Surgical History: Reports: Cholecystectomy, Orthopedic, Hernia Repair, Other, Unknown - Family History Family History: Reports: Unknown - Social History Smoking Status: Never smoker Hx Substance Use: No Alcohol Screening: None - Immunizations Tetanus Shot up to Date: Yes Physical Exam - Physical Exam Appearance: Ill-appearing, Obese Eyes: MARSHA, EOMI, Conjunctiva clear ENT: Ears normal, Nose normal, Oropharynx normal Respiratory: Airway patent, Breath sounds clear, Breath sounds equal, Respirations nonlabored Cardiovascular: RRR, Pulses normal, No rub, No murmur GI/: Soft, Nontender, No masses, Bowel sounds normal, No Organomegaly Musculoskeletal: Normal strength, ROM intact, No edema, No calf tenderness Skin: Warm, Dry, Normal color Neurological: Sensation intact, Motor intact, Reflexes intact, Cranial nerves intact, Alert, Oriented Psychiatric: Affect appropriate, Mood appropriate Critical Care Note - Critical Care Note Total Time (mins): 15 Course - Course Orders, Labs, Meds: Lab Review 04/13/17 00:25 Influenza A (Rapid) Positive by naat H Influenza B (Rapid) Negative by naat Orders Category Date Time Status FLU A/B MOLECULAR Stat LAB 04/13/17 00:25 Completed MOLECULAR GROUP A STREP Stat LAB 04/13/17 00:25 Completed Acetaminophen [Tylenol Liquid 650 mg/20.3 ml] MEDS 04/13/17 00:25 Discontinued 650 mg .ROUTE .STK-MED ONE Acetaminophen [Tylenol] MEDS 04/13/17 00:21 Discontinued 650 mg PO ONCE STA Dexamethasone 4 mg/ml Inj [Decadron 4 mg/ml Sdv] MEDS 04/13/17 00:23 Discontinued 4 mg IM ONCE STA Oseltamivir Phosphate [Tamiflu] MEDS 04/13/17 00:52 Stat 75 mg PO ONCE STA Medications Discontinued Medications Generic Name Dose Route Start Last Admin Trade Name Freq PRN Reason Stop Dose Admin Acetaminophen 650 mg 04/13/17 00:21 04/13/17 00:29 Tylenol PO 04/13/17 00:22 Not Given ONCE STA Dexamethasone Sodium Phosphate 4 mg 04/13/17 00:23 04/13/17 00:29 Decadron 4 Mg/Ml Sdv IM 04/13/17 00:24 4 mg ONCE STA Administration Oseltamivir Phosphate 75 mg 04/13/17 00:52 Tamiflu PO 04/13/17 00:53 ONCE STA Vital Signs: Temp Pulse Resp BP Pulse Ox 04/13/17 00:09 101.1 F H 87 16 140/88 95 Departure - Departure Time of Disposition: 00:54 Disposition: HOME SELF-CARE Discharge Problem: Influenza A Instructions: Influenza (ED) Condition: Stable Pt referred to PMD for follow-up: No IPMP verified?: No Additional Instructions: INCREASE HYDRATION PROBIOTICS TAKE MEDICATION WITH FOOD, IF NOT BETTER COME BACK Prescriptions: Oseltamivir Phosphate [Tamiflu] 75 mg PO Q12HR #10 capsule Prednisone 10 mg PO BIDWM #14 tablet Allergies/Adverse Reactions: Allergies aspirin Adverse Reaction (Verified 09/23/16 07:15) Home Medications: Ambulatory Orders Albuterol Sulfate 0.083% Neb [Albuterol 0.083% Neb] 1 vial NEB DIRECTED PRN 02/06/15 Cetirizine HCl [Zyrtec] 10 mg PO DAILY 02/06/15 Cyclobenzaprine HCl [Flexeril] 10 mg PO BID 02/06/15 Lansoprazole [Prevacid] 15 mg PO DAILY 02/06/15 Losartan Potassium [Cozaar] 100 mg PO DAILY 02/06/15 Montelukast Sodium [Singulair] 10 mg PO ONCE 02/06/15 Pravastatin Sodium [Pravachol] 20 mg PO BEDTIME 02/06/15 Sertraline HCl [Zoloft] 50 mg PO DAILY 02/06/15 Multivitamin 1 cap PO DAILY 06/04/15 Hydrocodone Bit/Acetaminophen [[place] 7.5-325] 1 tab PO Q4-8H PRN 04/13/17 Oseltamivir Phosphate [Tamiflu] 75 mg PO Q12HR #10 capsule 04/13/17 Prednisone 10 mg PO BIDWM #14 tablet 04/13/17 Disposition Discussed With: Patient
[2017-04-13] MEDS ORDERED: TAMIFLU PO STA (00:52)
[2017-04-13] MEDS ORDERED: TAMIFLU ONE (00:54)
== END 2017-04-13 01:00 | disposition home or self-care (01) ==
LOC: ED 00:05
DX: J10.1 Influenza due to other identified influenza virus with other respiratory manifestations (principal)
CPT/HCPCS: 87502; 87651; 96372; 99283

== ENCOUNTER 2017-12-06 08:23 | Outpatient (CLI) ==
--- NOTE | 2017-12-06 09:45 | DI ---
EXAM: Three views of the bilateral sacroiliac joints. History: Lower back pain. Findings: No acute fracture or dislocation. No abnormal calcifications or radiopaque foreign bodies . Bilateral sacroiliac joints are intact with no sclerosis and no osseous erosions. Impression: Intact bilateral sacroiliac joints
--- NOTE | 2017-12-06 09:46 | DI ---
EXAM: Seven views of the lumbar spine. History: Lumbar radiculopathy. Findings: Cholecystectomy clips. No acute fracture or subluxation of the lumbar spine. Mild multil evel disc space narrowing with a few small osteophytes. Moderate facet hypertrophy at L5-S1. Scatte red colonic stool. Moderate disc space narrowing within the lower thoracic spine. No instability iden tified with flexion or extension. Impression: 1. No acute osseous abnormality of the lumbar spine. 2. Mild degenerative disc disease of the lumbar spine. 3. Moderate hypertrophy at L5-S1.
--- NOTE | 2017-12-06 09:50 | DI ---
EXAM: Two views of the left hip. History: Left hip pain. Findings: No acute fracture or dislocation. No abnormal calcifications or radiopaque foreign bodies . Mild narrowing of the left hip joint with small osteophytes. Impression: 1. No acute osseous abnormality. 2. Mild arthritis of the left hip joint
== END 2017-12-06 08:24 | disposition home or self-care (01) ==
LOC: LAB 08:23
PROVIDERS: ATTEND Preventive Medicine Obesity Medicine
DX: I10 Essential (primary) hypertension (principal); M54.16 Radiculopathy, lumbar region
CPT/HCPCS: 36415; 80053; 80061

== ENCOUNTER 2018-03-31 15:30 | Emergency (ER) ==
[2018-03-31 15:40] VITALS: BP 150/91; TEMP 100.1; BMI 36.7
--- NOTE | 2018-03-31 16:01 | ED.PDOC ---
General ED Provider: Dr. HIRAL TALAVERA Chief Complaint: Earache Stated Complaint: right ear pain Time Seen by Physician: 15:33 Mode of Arrival: Walk-In Information Source: Patient Exam Limitations: No limitations Primary Care Provider: MARK ANTHONY MACIAS Nursing and Triage Documentation Reviewed and Agree: Yes Does patient meet sepsis criteria?: No System Inflammatory Response Syndrome: Not Applicable Sepsis Protocol: For patient's 13 years and over: Temp is 96.8 and below OR 101 and greater Pulse >90 BPM Resp >20/minute Acutely Altered Mental Status Are patient's symptoms suggestive of a new infection, such as: -Pneumonia -Skin, Soft Tissue -Endocarditis -UTI -Bone, Joint Infection -Implantable Device -Acute Abdominal Infection -Wound Infection -Meningitis -Blood Stream Catheter Infection -Unknown EENT Complaint Exam - Ear Complaint/Exam Onset/Duration: 1 week Symptoms Are: Still present Initial Severity: Mild Current Severity: Mild Character: Reports: Dull pain Aggravating: Reports: None Alleviating: Reports: None Associated Signs and Symptoms: Denies: Ear trauma, Ear swelling, Discharge, Fever, Hearing loss, Bleeding, Sore throat, Headache, URI symptoms, Foreign body sensation, Rash, Pain to external ear, Pain to external face Ear Surgical History: None Vesicles to External Pinna: No Vesicles to Tragus: No TMJ Tenderness: None Mastoid Tenderness: None Tragal Tenderness: None External Canal: Normal Tympanic Membrane: Erythema Review of Systems - Review Of Systems Constitutional: Reports: No symptoms Eyes: Reports: No symptoms Ears, Nose, Mouth, Throat: Reports: Ear pain (right) Respiratory: Reports: No symptoms Cardiac: Reports: No symptoms GI: Reports: No symptoms : Reports: No symptoms Musculoskeletal: Reports: No symptoms Skin: Reports: No symptoms Neurological: Reports: No symptoms Endocrine: Reports: No symptoms Hematologic/Lymphatic: Reports: No symptoms All Other Systems: Reviewed and Negative Past Medical History - Past Medical History Previously Healthy: Yes Endocrine: Reports: Dyslipidemia Cardiovascular: Reports: Hypertension Respiratory: Reports: Asthma, Pneumonia, Other Hematological: Reports: None Gastrointestinal: Reports: GERD, Other Genitourinary: Reports: None Neuro/Psych: Reports: None Musculoskeletal: Reports: None Cancer: Reports: None - Surgical History General Surgical History: Reports: Cholecystectomy, Orthopedic, Hernia Repair, Other, Unknown - Family History Family History: Reports: Unknown - Social History Smoking Status: Never smoker Hx Substance Use: No Alcohol Screening: Occasionally Physical Exam - Physical Exam Appearance: Well-appearing, No pain distress, Well-nourished Eyes: MARSHA, EOMI, Conjunctiva clear ENT: Erythema (right ) Respiratory: Airway patent, Breath sounds clear, Breath sounds equal, Respirations nonlabored Cardiovascular: RRR, Pulses normal, No rub, No murmur GI/: Soft, Nontender, No masses, Bowel sounds normal, No Organomegaly Musculoskeletal: Normal strength, ROM intact, No edema, No calf tenderness Skin: Warm, Dry, Normal color Neurological: Sensation intact, Motor intact, Reflexes intact, Cranial nerves intact, Alert, Oriented Psychiatric: Affect appropriate, Mood appropriate Critical Care Note - Critical Care Note Total Time (mins): 0 Course - Course Vital Signs: Temp Pulse Resp BP Pulse Ox 03/31/18 15:31 100.1 F H 74 20 150/91 H 96 Departure - Departure Time of Disposition: 16:00 Disposition: HOME SELF-CARE Discharge Problem: Otitis media Qualifiers: Otitis media type: unspecified Chronicity: acute Qualified Code(s): H66.90 - Otitis media, unspecified, unspecified ear Instructions: Ear Infection (ED) Condition: Good Pt referred to PMD for follow-up: Yes IPMP verified?: No Allergies/Adverse Reactions: Allergies aspirin Adverse Reaction (Verified 03/31/18 15:41) Home Medications: Ambulatory Orders Albuterol Sulfate 0.083% Neb [Albuterol 0.083% Neb] 1 vial NEB DIRECTED PRN 02/06/15 Cetirizine HCl [Zyrtec] 10 mg PO DAILY 02/06/15 Cyclobenzaprine HCl [Flexeril] 10 mg PO BID 02/06/15 Lansoprazole [Prevacid] 15 mg PO DAILY 02/06/15 Losartan Potassium [Cozaar] 100 mg PO DAILY 02/06/15 Montelukast Sodium [Singulair] 10 mg PO ONCE 02/06/15 Pravastatin Sodium [Pravachol] 20 mg PO BEDTIME 02/06/15 Sertraline HCl [Zoloft] 50 mg PO DAILY 02/06/15 Multivitamin 1 cap PO DAILY 06/04/15 Hydrocodone Bit/Acetaminophen [[place] 7.5-325] 1 tab PO Q4-8H PRN 04/13/17 Phentermine HCl 15 mg PO DAILY 03/31/18
== END 2018-03-31 16:24 | disposition home or self-care (01) ==
LOC: ED 15:30
DX: H92.01 Otalgia, right ear (principal); H66.90 Otitis media, unspecified, unspecified ear
CPT/HCPCS: 99282

== ENCOUNTER 2018-04-10 17:34 | Emergency (ER) ==
[2018-04-10 17:37] VITALS: BP 147/78; TEMP 97.8; BMI 36.9
--- NOTE | 2018-04-10 17:47 | ED.PDOC ---
General ED Provider: Dr. HIRAL TALAVERA Chief Complaint: Earache Stated Complaint: right ear pain x 1 week i saw the pt before pt is not better per pt Time Seen by Physician: 17:40 Mode of Arrival: Walk-In Information Source: Patient Exam Limitations: No limitations Primary Care Provider: MARK ANTHONY MACIAS Nursing and Triage Documentation Reviewed and Agree: Yes Does patient meet sepsis criteria?: No If yes, has appropriate treatment been initiated?: No System Inflammatory Response Syndrome: Not Applicable Sepsis Protocol: For patient's 13 years and over: Temp is 96.8 and below OR 101 and greater Pulse >90 BPM Resp >20/minute Acutely Altered Mental Status Are patient's symptoms suggestive of a new infection, such as: -Pneumonia -Skin, Soft Tissue -Endocarditis -UTI -Bone, Joint Infection -Implantable Device -Acute Abdominal Infection -Wound Infection -Meningitis -Blood Stream Catheter Infection -Unknown EENT Complaint Exam - Ear Complaint/Exam Symptoms Are: Still present Timing: Intermittent Initial Severity: Mild Current Severity: Mild Character: Reports: Dull pain Aggravating: Reports: None Alleviating: Reports: None Associated Signs and Symptoms: Denies: Ear trauma, Ear swelling, Discharge, Fever, Hearing loss, Bleeding, Sore throat, Headache, URI symptoms, Foreign body sensation, Rash, Pain to external ear, Pain to external face Ear Surgical History: None Vesicles to External Pinna: No Vesicles to Tragus: No TMJ Tenderness: None Mastoid Tenderness: None Tragal Tenderness: None External Canal: Normal Tympanic Membrane: Erythema (right tm) Review of Systems - Review Of Systems Constitutional: Reports: No symptoms Eyes: Reports: No symptoms Ears, Nose, Mouth, Throat: Reports: Ear pain (right) Respiratory: Reports: No symptoms Cardiac: Reports: No symptoms GI: Reports: No symptoms : Reports: No symptoms Musculoskeletal: Reports: No symptoms Skin: Reports: No symptoms Neurological: Reports: No symptoms Endocrine: Reports: No symptoms Hematologic/Lymphatic: Reports: No symptoms All Other Systems: Reviewed and Negative Past Medical History - Past Medical History Previously Healthy: Yes Endocrine: Reports: Dyslipidemia Cardiovascular: Reports: Hypertension Respiratory: Reports: Asthma, Pneumonia, Other Hematological: Reports: None Gastrointestinal: Reports: GERD, Other Genitourinary: Reports: None Neuro/Psych: Reports: None Musculoskeletal: Reports: None Cancer: Reports: None - Surgical History General Surgical History: Reports: Cholecystectomy, Orthopedic, Hernia Repair, Other, Unknown - Family History Family History: Reports: Unknown - Social History Smoking Status: Never smoker Hx Substance Use: No Alcohol Screening: Occasionally Physical Exam - Physical Exam Appearance: Well-appearing, No pain distress, Well-nourished Eyes: MARSHA, EOMI, Conjunctiva clear ENT: Ears normal, Nose normal, Oropharynx normal Respiratory: Airway patent, Breath sounds clear, Breath sounds equal, Respirations nonlabored Cardiovascular: RRR, Pulses normal, No rub, No murmur GI/: Soft, Nontender, No masses, Bowel sounds normal, No Organomegaly Musculoskeletal: Normal strength, ROM intact, No edema, No calf tenderness Skin: Warm, Dry, Normal color Neurological: Sensation intact, Motor intact, Reflexes intact, Cranial nerves intact, Alert, Oriented Psychiatric: Affect appropriate, Mood appropriate Critical Care Note - Critical Care Note Total Time (mins): 0 Course - Course Vital Signs: Temp Pulse Resp BP Pulse Ox 04/10/18 17:35 97.8 F 80 20 147/78 H 95 Departure - Departure Time of Disposition: 17:47 Disposition: HOME SELF-CARE Discharge Problem: Ear problem, Ear infection Instructions: Ear Infection (ED) Condition: Good Pt referred to PMD for follow-up: Yes IPMP verified?: No Allergies/Adverse Reactions: Allergies aspirin Adverse Reaction (Verified 04/10/18 17:37) Home Medications: Ambulatory Orders Albuterol Sulfate 0.083% Neb [Albuterol 0.083% Neb] 1 vial NEB DIRECTED PRN 02/06/15 Cetirizine HCl [Zyrtec] 10 mg PO DAILY 02/06/15 Cyclobenzaprine HCl [Flexeril] 10 mg PO BID 02/06/15 Lansoprazole [Prevacid] 15 mg PO DAILY 02/06/15 Losartan Potassium [Cozaar] 100 mg PO DAILY 02/06/15 Montelukast Sodium [Singulair] 10 mg PO ONCE 02/06/15 Pravastatin Sodium [Pravachol] 20 mg PO BEDTIME 02/06/15 Sertraline HCl [Zoloft] 50 mg PO DAILY 02/06/15 Multivitamin 1 cap PO DAILY 06/04/15 Phentermine HCl 15 mg PO DAILY 03/31/18
== END 2018-04-10 17:54 | disposition home or self-care (01) ==
LOC: ED 17:34
DX: H92.01 Otalgia, right ear (principal); L53.9 Erythematous condition, unspecified; H66.91 Otitis media, unspecified, right ear
CPT/HCPCS: 99282